=== PATIENT | male | born 1945 | race Caucasian/White ===

== ENCOUNTER → 2020-06-19 15:00 | Outpatient (CLI) | payer MEDICARE, OTHER, SELFPAY ==
[2020-06-19 18:04] LABS: Hematocrit 44.6 % (40-54); Hemoglobin 15.1 g/dL (13.0-16.5); Mean Corp Hgb Conc 33.9 g/dL (32-36); Mean Corpuscular Hgb 30.1 pg (27.0-32.0); Mean Corpuscular Volume 88.8 fL (80-94); Platelet Count 206 K/mm3 (150-450); RBC Distribution Width CV 12.2 % (11.6-14.6); RBC Distribution Width SD 39.6 fl (35.1-43.9); Red Blood Count 5.02 M/mm3 (4.6-6.2)
== END ==
PROVIDERS: PCP Family Medicine; Referring Provider Internal Medicine Pulmonary Disease; Visit Provider Internal Medicine Pulmonary Disease
DX: J44.9 Chronic obstructive pulmonary disease, unspecified (principal); I10 Essential (primary) hypertension
CPT/HCPCS: 36415; 85027

== ENCOUNTER 2022-12-28 10:22 | Emergency (ER) | payer MEDICARE, OTHER, SELFPAY ==
[2022-12-28 10:23] VITALS: BP 154/77; PULSE 45; RESP 14; TEMP 36.4; O2SAT 97; BMI 33.2
--- NOTE | 2022-12-28 10:52 | CT_ITS ---
INDICATION: headache and dizzy EXAMINATION: CTA HEAD - CTA Head and Neck W/ Contrast Injection (and W/O Contrast Images if performed) TECHNIQUE: [place]/head CT angiogram protocol was performed following IV contrast. Routine carotid CT angiogram protocol was performed without and with IV contrast. NASCET criteria using the distal ICAs for comparison were used for evaluation of stenoses. 3D reconstructions were reviewed of the CT angiogram head and neck. A radiation dose optimization technique was used for this scan. IV Contrast dosage and agent: 100 cc [id number] COMPARISON: None. FINDINGS: --Anterior cerebral circulation: ACAs: No significant stenosis at the visualized segments. ACOM: Not identified. MCAs: No significant stenosis at the visualized segments. --Posterior cerebral circulation: PCOMs: Patent left P-comm knot tier: No significant stenosis at the visualized segments. BASILAR ARTERY: No significant stenosis. --Carotid and vertebral circulation: AORTIC ARCH AND BRANCHES: Normal anatomy, patent. RIGHT CCA: No occlusion, significant stenosis or dissection. RIGHT ICA: No occlusion, significant stenosis or dissection. LEFT CCA: No occlusion, significant stenosis or dissection. LEFT ICA: No occlusion, significant stenosis or dissection. RIGHT VERTEBRAL ARTERY: No occlusion, significant stenosis or dissection. LEFT VERTEBRAL ARTERY: No occlusion, significant stenosis or dissection. NECK SOFT TISSUES: Unremarkable. LUNG APICES: Clear. BONES: Unremarkable. IMPRESSION: Normal CTA Head and Neck Electronically Signed: Michoacano Bartlett MD at 12:12 EST , EXAM: CT HEAD WITHOUT INTRAVENOUS CONTRAST CLINICAL INDICATION: headache and dizzy TECHNIQUE: Multiple axial images were obtained of the head without intravenous contrast. This CT exam was performed using one or more of the following dose reduction techniques: automated exposure control, adjustment of the mA and/or kV according to patient size, and/or use of iterative reconstruction technique. This report was created using [employer] report [employer]iration technology. COMPARISON: None. FINDINGS: BRAIN AND EXTRA-AXIAL SPACES: Normal. No intra- or extra-axial hemorrhage. No evidence of acute infarct. No intracranial mass or mass effect. There is preservation of the adan/white matter interface. Posterior fossa structures are unremarkable. Ventricles are appropriate for age. No hydrocephalus. Basal cisterns are patent. BONES/JOINTS: No suspicious lytic or blastic abnormality. SINUSES: No acute sinusitis. MASTOID AIR CELLS: Partial opacification of the right mastoid sinus. ORBITS: Visualized globes, extraocular muscles, optic nerves and retrobulbar fat appear unremarkable. CT/CTA Head AND Neck W/ Contrast IMPRESSION: No acute intracranial abnormality. Partially opacified right mastoid sinus. Electronically Signed: Michoacano Bartlett MD at 12:13 EST ,
--- NOTE | 2022-12-28 10:52 | EKG12_ITS ---
Test Reason : Blood Pressure : / mmHG Vent. Rate : 045 BPM Atrial Rate : 045 BPM P-R Int : 170 ms QRS Dur : 146 ms QT Int : 468 ms P-R-T Axes : -14 068 034 degrees QTc Int : 404 ms Sinus bradycardia Right bundle branch block Abnormal ECG Confirmed by AGUSTIN FERGUSON, BRAD ([id number]), story editor HUGH GASCA ([id number]) on 12/29/2022 2:38:44 PM Referred By: Confirmed By:BRAD VELEZ MD
--- NOTE | 2022-12-28 10:55 | ED.VIS.STROK ---
HPI History of Present Illness Chief Complaint: Weakness Detail of Chief Complaint: Sudden onset headache with dizziness, nausea and visual change. Now resolv Informant: patient, spouse/S.O. and family Onset/Context/Timing Onset: Today Context: Sudden Onset Timing: Continuous Quality and Location: Negative for Right Facial Droop, Left Facial Droop, Right Face Paresthesia, Left Face Parasthesia, Right Arm Parasthesia, Left Arm Parasthesia, Right Leg Parasthesia, Left Leg Parasthesia, Right Arm Weakness, Left Arm Weakness, Right Leg Weakness, Left Leg Weakness, Slurred Speech, Expressive Aphasia, Receptive Aphasia or Difficulty with Ambulation Current Severity: Gone Maximum Severity: Moderate Associated Symptoms Associated Symptoms: Positive for Headache and Nausea; Negative for Vomiting or Chest Pain Narrative Narrative: 77-year-old male history of hypertension, TIAs x3, PA, CAD with 4 cardiac stents on Plavix and aspirin. Today was at religious. He initially became dizzy room spinning then he developed a significant headache with nausea. Said headache was frontal. This entire event lasted around 10 to 15 minutes. It is significantly improved and almost completely resolved. He describes the dizziness as off-balance. He was seated when it occurred he did not try to speak. He had bilateral blurry vision which is since resolved also. Basically his headache is nearly gone. He denies any falls or head trauma. He has never had a brain aneurysm or any intracranial surgery. Prior similar symptoms: No Recent Illness/Hospitalization: No [facility] Medical History Asthma High cholesterol HTN (hypertension) Allergy/AdvReac Type Severity Reaction Status Date / Time No Known Allergies Allergy Verified 12/28/22 10:23 Surgical History H/O heart artery stent Social History Smoking Status: Never smoker ROS ROS ED ROS Narrative Headache. Nausea. Blurry vision. Review of Systems ROS Unobtainable: Denies due to encephalopathy Constitutional Constitutional ED: Denies chills or fever(s) Eyes Eyes: Reports blurry vision ENT ENT ED: Denies ear pain Cardiovascular Cardiovascular: Denies chest pain Respiratory/Chest Respiratory/Chest: Denies cough or dyspnea Gastrointestinal Gastrointestinal: Denies abdominal pain Genitourinary Genitourinary ED: Denies dysuria or hematuria Musculoskeletal Musculoskeletal: Denies arthralgias Integumentary Denies abscess Neurologic Neurologic: Reports headache(s) Psychiatric Psychiatric: Denies anxiety or depression Endocrine Endocrinology: Denies polydipsia Hematologic/Lymphatic Hematologic/Lymphatic: Denies easy bleeding Allergic/Immunologic Allergic/Immunologic ED: Denies mouth swelling EXAM Physical Exam Narrative Exam Narrative: 77-year-old male vital signs are stable afebrile. Blood pressure 154/77. H EENT exam unremarkable. Atraumatic. Pupils round reactive light. No facial droop. Normal speech. Neck nontender no meningismus. Lungs clear to auscultation bilaterally. Heart regular rhythm rate about 50 no murmur. Chest wall nontender. Abdomen soft nontender. Moving all 4 extremities. 5 out of 5 route delivery clerk strength. Dorsi plantarflexion intact. Can raise either arm or leg without any drift. Neurologically awake and alert. Answering questions and following commands. Normal speech. No facial droop. Extraocular motions are intact. Pupils round reactive light about 2 to 3 mm bilaterally. Acting appropriate. NIH of 0. Const Vital Signs: 12/28/22 10:23 Temperature 97.6 F L Temperature Source Oral Pulse Rate 45 L Respiratory Rate 14 Blood Pressure 154/77 H Blood Pressure Mean 102 Pulse Ox 97 Oxygen Delivery Method Room Air Positive well developed; Negative for cachectic, contractures or unkempt General Appearance ED: well developed and NAD; Negative for unkempt, cachectic or contractures Nutritional Appearance: Negative for cachectic HEENT Reports moist mucous membranes; Denies dry mucous membranes Negative for atraumatic or trauma Nose: Negative for other Mouth ED: No dry mucous membranes Mouth: No dry mucous membranes Eyes PERRL and EOMs intact bilaterally General Eye ED: Negative for pale conjunctiva, scleral icterus or other Neck no lymphadenopathy, supple and no JVD General: Negative for tenderness Thyroid: Negative for other Chest Wall inspection of chest normal and palpation of chest normal Chest: Negative for other Resp normal respiratory effort and clear to auscultation bilaterally Effort and Inspection: Negative for retractions Auscultation: Negative for rales, rhonchi or wheezes Cardio no murmurs Rate: regular rate Rhythm: regular rhythm Heart Sounds: Negative for S1 normal or S2 normal GI normal to inspection, nondistended, normoactive bowel sounds, soft to palpation, non-tender, non-distended and no masses Inspection: Negative for abdominal distention Auscultation: normoactive bowel sounds Palpation: Negative for tender or guarding Back/Spine no CVA tenderness General Back: Negative for CVA tenderness Cervical Spine: Negative for cervical spine tenderness Thoracic Spine / Upper Back: Negative for thoracic spinal tenderness Lumbar Spine / Lower Back: Negative for lumbar spinal tenderness Extremity normal to inspection General Extremety ED: Negative for deformity, edema or tenderness General Extremity: Negative for deformity or edema Neuro oriented x3, CN's II-XII intact bilaterally and no sensory deficits noted Sensorium / Orientation: alert, oriented to person, oriented to place and oriented to time; Negative for orientation impaired, confused, lethargic or stuporous Cranial Nerves: Negative for other Speech: speech normal Sensory Exam: No sensory level loss detected Motor Exam: strength 5/5 throughout Psych mental status grossly normal Appearance: Negative for unkempt Attitude: No agitated Mood & Affect: Negative for depressed, anxious or tearful Attention / Concentration: Negative for other Skin no wounds General Skin Exam: Negative for jaundice Lesions: no lesions Rashes: no rashes Trauma: Negative for abrasion NIHSS NIHSS Initial: 1a Level of Consciousness: 0 1b LOC Questions (Score 2 if aphasic/stupor): 0 1c LOC Commands (Only score 1st attempt): 0 2 Best Gaze (If aphasic, use reflexive mvmts.): 0 3 Visual: 0 4 Facial Palsy: 0 5 Motor Arm Right (UN = amputation/fusion): 0 5 Motor Arm Left: 0 6 Motor Leg Right: 0 6 Motor Leg Left: 0 7 Limb ataxia (Only + if out of proportion): 0 8 Sensory (Aphasia/stupor=0 or 1, coma=2): 0 9 Best Language: 0 10 Dysarthria (mute, coma=2, intubated=UN): 0 11 Extinction and Inattention (only scored if +): 0 Total Score: 0 MDM MDM MDM Narrative Medical decision making narrative: 77-year-old male with sudden onset of headache with dizziness and nausea at religious. Episode lasted maybe 15 minutes. Basically resolved and feeling much better at this time. I did check his blood pressure at the time of the event and it was 140s to 150s systolic. His exam is benign. I will CT his head due to prior TIAs and my concern for sudden onset severe headache to rule out an intracranial bleed or brain aneurysm will obtain a CTA. Screening labs and EKG will also be obtained. He does not need any medications at this time or interventions because he is feeling much improved. Multiple repeat exams patient is doing well. He is completely normal neurologic exam symptoms have resolved. I do not have a specific cause for his headache. Or his dizziness. His labs CT and EKG are unremarkable. He has a chronic bradycardia that is not new. He and family are comfortable with him being discharged home with outpatient follow-up. Lab Data Attestation: I reviewed the patient's lab results. Lab results narrative: CBC normal. White count of 5. H&H 15 and 46. Electrolytes normal gap of 6 normal BUN of 14 creatinine 1.2. Glucose 115. Labs: Laboratory Results - last 24 hr 12/28/22 12/28/22 10:12 10:12 WBC 5.1 RBC 5.20 Hgb 15.5 Hct 46.6 MCV 89.6 MCH 29.8 MCHC 33.3 RDW Std Deviation 41.4 RDW Coeff of [place] 12.7 Plt Count 183 MPV 8.6 Immature Gran % (Auto) 0.200 Neut % (Auto) 66.6 Lymph % (Auto) 22.1 [place] % (Auto) 8.1 Eos % (Auto) 2.4 Baso % (Auto) 0.6 Absolute Neuts (auto) 3.4 Absolute Lymphs (auto) 1.12 Nucleated RBC % 0 Sodium 138 Potassium 4.3 Chloride 104 Carbon Dioxide 28.0 Anion Gap 6 BUN 14 Creatinine 1.23 Estim Creat Clear Calc 52.76 Est GFR (MDRD) Af Amer 74 Est GFR (MDRD) Non-Af 61 BUN/Creatinine Ratio 11.4 Glucose 115 H Calcium 9.1 Radiography Diagnostic Testing: Clinical Impression(s) from Imaging Studies Head/Neck CTA 12/28/22 10:52 IMPRESSION: No acute intracranial abnormality. Partially opacified right mastoid sinus. Electronically Signed: Michoacano Bartlett MD at 12:13 EST , Rhythm Strip Rhythm Strip: Sinus Rhythm Rate: 45 Ectopy: None EKG Initial EKG: Attestation: I personally reviewed and interpreted this EKG as follows: Interpretation: Sinus Rhythm and Sinus Bradycardia Comments: Sinus bradycardia rate of 45. Right bundle branch block. No significant change from prior EKG from 2003. Discharge Plan Triage Chief Complaint: Weakness ED Provider: Carmelo Joshi Dx/Rx/DC Orders Clinical Impression: Headache, Dizziness, History of PA (myocardial infarction), History of TIAs Instructions: ED Dizziness, Uncertain Cause Primary Care Provider: Kevin Cline Referrals: Kevin Cline MD [Primary Care Provider] - 3-5 Days Activity Restrictions/Additional Instructions: Your labs and CAT scans of your brain all look good. Your exam is normal today. Your symptoms have resolved. I do not have a specific cause of what happened. Follow-up with your primary care physician. Return if feeling worse. Disposition Disposition: Home, Self Care
[2022-12-28 11:09] LABS: Absolute Lymphocyte Count 1.12 X10^3/uL (0.83-4.51); Absolute Neutrophil Count 3.4 X10^3/uL (2.0-7.7); Basophil# 0.03 X10^3/uL; Basophil% 0.6 % (0-1); Eosinophil# 0.12 X10^3/uL; Eosinophils% 2.4 % (0-5); Hematocrit 46.6 % (40-54); Hemoglobin 15.5 g/dL (13.0-16.5); Lymphocyte # 1.12 X10^3/ul (0.83-4.51); Lymphocyte % 22.1 % (19-41); Mean Corp Hgb Conc 33.3 g/dL (32-36); Mean Corpuscular Hgb 29.8 pg (27.0-32.0); Mean Corpuscular Volume 89.6 fL (80-94); Mean Platelet Vol. 8.6 fl (6.2-12.0); Monocyte# 0.41 X10^3/uL; Monocyte% 8.1 % (0-10); NRBC Flagged by Analyzer 0 % (0-5); Neutrophil # 3.38 X10^3/uL (2.7-7.7); Neutrophil % 66.6 % (47-70); Platelet Count 183 K/mm3 (150-450); RBC Distribution Width CV 12.7 % (11.6-14.6); RBC Distribution Width SD 41.4 fl (35.1-43.9); White Blood Count 5.1 K/mm3 (4.4-11.0)
[2022-12-28 11:22] LABS: Anion Gap 6 (5-15); BUN 14 mg/dL (7-18); BUN/Creat Ratio 11.4 RATIO (10-20); Calcium,Total 9.1 mg/dL (8.5-10.1); Chloride 104 mmol/L (98-107); Creatinine, Serum 1.23 mg/dL (0.70-1.30); EST Glomerular Filtration Rate 61 mL/min (>60); Est Glom Filt Rate - Afr Amer 74 mL/min (>60); Estimated Creatinine Clearance 52.76 ml/min; Glucose 115 mg/dL (74-106); Potassium 4.3 mmol/L (3.5-5.1); Sodium Level 138 mmol/L (136-145)
[2022-12-28 12:37] VITALS: BP 158/82; PULSE 50
[2022-12-28 12:41] VITALS: BP 158/82; PULSE 49
== END 2022-12-28 12:43 | disposition home or self-care (01) ==
PROVIDERS: Emergency Provider Emergency Medicine; PCP Family Medicine; Visit Provider Emergency Medicine
DX: R51.9 Headache, unspecified (principal); R42 Dizziness and giddiness; I25.10 Atherosclerotic heart disease of native coronary artery without angina pectoris; I25.2 Old myocardial infarction; Z95.5 Presence of coronary angioplasty implant and graft; Z79.01 Long term (current) use of anticoagulants; Z86.73 Personal history of transient ischemic attack (TIA), and cerebral infarction without residual deficits
CPT/HCPCS: 70496; 70498; 80048; 85025; 93005; 99285; Q9967

== ENCOUNTER → 2024-09-07 | Outpatient (CLI) | payer MEDICARE, OTHER, SELFPAY ==
--- NOTE | 2024-09-07 13:47 | NEURO_ITS ---
NCS and/or EMG Patient Report Ordering Doctor: GURDEEP SERRANO DATE OF SERVICE: 09/07/24 Aramis presents for electrodiagnostic testing of the left upper and lower limb. He reports unsteady gait and states his left knee occasionally gives out on him. Electrodiagnostic findings: Left median motor nerve demonstrates normal distal latency, amplitude and conduction velocity. Left ulnar motor nerve demonstrates normal distal latency, amplitude and conduction velocity. Left peroneal motor nerve demonstrates normal distal latency, amplitude and conduction velocity. Left tibial motor nerve demonstrates normal distal latency with reduced amplitude and normal conduction velocity. Prolonged left median F?wave. P rolonged left tibial and left peroneal F?wave. Prolonged H?reflex bilaterally. Needle EMG testing was performed the left upper and left lower limb. All muscles tested showed no evidence of denervation with normal motor unit potentials. Electrodiagnostic impression: This is an abnormal study 1. 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 2. No electrodiagnostic evidence for left carpal tunnel or cubital tunnel syndrome 3. No electrodiagnostic evidence for cervical or lumbar radiculopathy. Multi Select Codes Neurology Neurology Interp Codes: 52888-85 Musc test done w/n test comp (interp) (2) and 89651-18 Nrv cndj test 13/> studies (interp)
== END | disposition home or self-care (01) ==
LOC: PSN 11:59
PROVIDERS: PCP Family Medicine; Referring Provider Psychiatry & Neurology Neurology; Visit Provider Psychiatry & Neurology Neurology
DX: R26.81 Unsteadiness on feet (principal)
CPT/HCPCS: 95886; 95913

== ENCOUNTER → 2025-02-01 | Outpatient (CLI) | payer OTHER, SELFPAY ==
--- NOTE | 2025-02-01 06:50 | RAD_ITS ---
PROCEDURE: CHEST PA AND LATERAL 02/01/2025 REASON FOR EXAM: COPD, ASTHMA TECHNIQUE: Frontal and lateral views of the chest. COMPARISON: None. FINDINGS: Hardware: None. Heart: The heart size is normal. Mediastinum: The mediastinal contour is unremarkable. Lungs: Minimal emphysema. Bibasilar atelectasis/scarring. No focal consolidation, pleural effusion or pneumothorax. Bones: The bones are unremarkable. RAD/Chest PA and Lateral IMPRESSION: NEGATIVE CHEST. Reading Location: [id number]
== END | disposition home or self-care (01) ==
LOC: PSN 06:37
PROVIDERS: PCP Family Medicine; Referring Provider Chiropractor; Visit Provider Chiropractor
DX: J44.9 Chronic obstructive pulmonary disease, unspecified (principal)
CPT/HCPCS: 71046; 94060; 94726; 94729

== ENCOUNTER 2025-03-27 08:04 | Emergency (ER) | payer OTHER, SELFPAY ==
[2025-03-27] VITALS (7 sets, daily range): BP systolic 119–149; BP diastolic 74–93; PULSE 45–56; RESP 12–18; TEMP 36.6–36.8; O2SAT 96–98; BMI 33.4
--- NOTE | 2025-03-27 08:18 | EKG12_ITS ---
Test Reason : CP Blood Pressure : */* mmHG Vent. Rate : 45 BPM Atrial Rate : 45 BPM P-R Int : 180 ms QRS Dur : 148 ms QT Int : 458 ms P-R-T Axes : 30 67 46 degrees QTcB Int : 396 ms Sinus bradycardia Right bundle branch block Abnormal ECG Confirmed by Carlito Hendrickson ([id number]), film or videotape editor HUGH GASCA ([id number]) on 03/28/2025 9:54:30 AM Referred By: Confirmed By: Carlito Hendrickson
--- NOTE | 2025-03-27 08:19 | ED.VIS.CHEST ---
HPI History of Present Illness Chief Complaint: Chest Pain Informant: patient, spouse/S.O. and EMS Narrative Narrative: 79-year-old male presenting to the emergency room via EMS with a chief complaint of chest pain. Patient states that the past few days he has felt more bloating thought maybe his stomach has been bothering him. This morning he was feeling some slight chest discomfort and sat down to take his morning medications. He states he took his antacid medicine and a couple minutes later began to have an elephant sitting on his chest and became diaphoretic. EMS was called. Prehospital EKG did not reveal an obvious STEMI. He received aspirin as well as a nitroglycerin which significantly helped his pain. He states now instead of an elephant it feels more like a dog. No vomiting. No black or bloody stools. He notes that he has seen [facility] cardiology for years but is in need of a new chief wharfinger as his chief wharfinger have been changing in recent visits. He notes a heart catheterization last year in which they went in through my arm to take a look at things then through my leg to remove the plaque and give a medicine to prevent plaque. He states he has had prior heart stents. notes the resting heart rate is typically 45-55. Resting blood pressures typically 120s and 130s over 70s [facility] Medical History Asthma High cholesterol HTN (hypertension) Home Medications ?Medication ?Instructions ?Recorded ?Last Taken ?Type acetaminophen 500 mg capsule 1,000 mg PO DAILY pain 03/27/25 03/26/25 History albuterol sulfate 90 mcg/actuation 2 inh inhalation PRN PRN copd 03/27/25 Unknown History aerosol inhaler (Ventolin HFA) amlodipine 10 mg tablet 10 mg PO DAILY 03/27/25 03/26/25 History aspirin 81 mg tablet 81 mg PO DAILY 03/27/25 03/26/25 History betamethasone valerate 0.1 % 1 applic topical DAILY PRN eczema 03/27/25 Unknown History topical ointment cholecalciferol (vitamin D3) 25 25 mcg PO DAILY supplement 03/27/25 03/26/25 History mcg (1,000 unit) tablet (Vitamin D3) clopidogrel 75 mg tablet 75 mg PO DAILY 03/27/25 03/26/25 History fluticasone propionate 230 2 inh inhalation DAILY 03/27/25 03/27/25 History mcg-salmeterol 21 mcg/actuation HFA inhaler isosorbide mononitrate 30 mg 30 mg PO DAILY #14 tabs 03/27/25 Unknown Rx tablet,extended release 24 hr lisinopril 40 mg tablet 40 mg PO DAILY 03/27/25 03/26/25 History metoprolol succinate 25 mg 25 mg PO DAILY 03/27/25 03/26/25 History tablet,extended release 24 hr montelukast 10 mg tablet 10 mg PO DAILY 03/27/25 03/26/25 History multivitamin (Daily Multi-Vitamin 1 tab PO DAILY 03/27/25 03/26/25 History tablet) nitroglycerin 0.4 mg sublingual 0.4 mg sublingual Q5M PRN chest 03/27/25 Unknown History tablet (Nitrostat) pain omega 4-xyv-nqg-fish oil 1,200 mg 1 cap PO DAILY 03/27/25 03/26/25 History (144 mg-216 mg) capsule (Fish Oil) pantoprazole 40 mg tablet,delayed 40 mg PO DAILY 03/27/25 03/27/25 History release pravastatin 40 mg tablet 40 mg PO DAILY 03/27/25 03/26/25 History tamsulosin 0.4 mg capsule (Flomax) 0.4 mg PO DAILY prostate 03/27/25 03/26/25 History theophylline 300 mg 300 mg PO BID 03/27/25 03/26/25 History tablet,extended release,12 hr triamcinolone acetonide 55 mcg 2 spray intranasal DAILY ALLERGIES 03/27/25 03/26/25 History nasal spray aerosol (24 Hour Nasal Allergy) Allergy/AdvReac Type Severity Reaction Status Date / Time No Known Allergies Allergy Verified 03/27/25 08:05 Surgical History H/O heart artery stent Social History Smoking Status: Never smoker ROS ROS ED Constitutional Constitutional ED: Denies chills, fever(s) or weight loss Eyes Eyes: Denies change in vision or diplopia ENT ENT ED: Denies ear pain, rhinorrhea or sore throat Cardiovascular Cardiovascular: Reports as per HPI and chest pain; Denies orthopnea, palpitations or racing heartbeat Respiratory/Chest Respiratory/Chest: Denies cough, dyspnea or orthopnea Gastrointestinal Gastrointestinal: Denies abdominal pain, diarrhea, nausea or vomiting Genitourinary Genitourinary ED: Denies dysuria, hematuria or urinary frequency Musculoskeletal Musculoskeletal: Denies arthralgias or myalgias Integumentary Denies abscess or rash Neurologic Neurologic: Denies headache(s) or weakness Psychiatric Psychiatric: Denies anxiety, depression, suicidal ideation or suicidal thoughts Endocrine Endocrinology: Denies polydipsia, polyphagia or polyuria Allergic/Immunologic Allergic/Immunologic ED: Denies mouth swelling, tongue swelling or urticaria EXAM Physical Exam Const Vital Signs: 03/27/25 08:05 03/27/25 08:08 03/27/25 08:55 Temperature 98.3 F Temperature Source Oral Pulse Rate 45 L Respiratory Rate 12 Respiratory Effort Normal Non-Labored Respiratory Pattern Normal Blood Pressure 119/74 133/83 H Blood Pressure Mean 89 Pulse Ox 96 Oxygen Delivery Method Room Air 03/27/25 09:04 03/27/25 10:00 03/27/25 11:00 Temperature Temperature Source Pulse Rate 56 L 55 L 55 L Respiratory Rate 18 18 18 Respiratory Effort Respiratory Pattern Blood Pressure 128/84 H 124/80 H 126/78 H Blood Pressure Mean 98 94 94 Pulse Ox 98 98 98 Oxygen Delivery Method 03/27/25 12:00 03/27/25 13:02 03/27/25 13:02 Temperature 98 F Temperature Source Pulse Rate 53 L 53 L 53 L Respiratory Rate 14 18 18 Respiratory Effort Respiratory Pattern Blood Pressure 149/93 H 129/82 H 129/82 H Blood Pressure Mean 111 97 97 Pulse Ox 98 96 97 Oxygen Delivery Method Nasal Cannula MDM MDM MDM Narrative Medical decision making narrative: Differential diagnosis includes but not limited to cardiac dysrhythmia acute coronary syndrome coronary artery disease esophageal spasm GERD pneumothorax congestive heart failure pleural effusions aortic dissection and aneurysm Prehospital EKG with was sent to us and was reviewed. EKG here in the department shows sinus bradycardia with right bundle branch block. 2 sets of cardiac enzymes are 19 and 16. White count 5.7 hemoglobin 14.6 platelet count of 222. BMP shows a creatinine 1.42 with a glucose of 128. My independent interpretation of the chest x-ray is no acute process. Patient has been resting comfortably. I spoke with Dr. Hendrickson from cardiology. Using shared decision making we offered the patient admission versus the addition of Imdur and follow-up in the office. Patient is comfortable going home and taking the Imdur. He will return if worsening or concerns. History & Record Review Discussion w/independent historian: EMS personnel, Patient and Significant other Lab Data Attestation: I reviewed the patient's lab results. Labs: Laboratory Results - last 24 hr 03/27/25 03/27/25 08:20 10:58 WBC 5.7 RBC 4.84 Hgb 14.6 Hct 42.1 MCV 87.0 MCH 30.2 MCHC 34.7 RDW Std Deviation 38.7 RDW Coeff of [place] 12.1 Plt Count 222 MPV 8.9 Immature Gran % (Auto) 0.400 Neut % (Auto) 71.6 H Lymph % (Auto) 18.0 L [place] % (Auto) 7.4 Eos % (Auto) 1.9 Baso % (Auto) 0.7 Absolute Neuts (auto) 4.1 Absolute Lymphs (auto) 1.02 Nucleated RBC % 0 Sodium 137 Potassium 4.1 Chloride 102 Carbon Dioxide 24.0 Anion Gap 11 BUN 19 Creatinine 1.42 H Estim Creat Clear Calc 52.21 Est GFR (MDRD) Non-Af 51 L BUN/Creatinine Ratio 13.0 Glucose 128 H Calcium 9.4 Troponin T High Sens 19 Troponin T Hi Sens 2 Hr 16 Radiography Diagnostic Testing: Clinical Impression(s) from Imaging Studies Chest X-Ray 03/27/25 08:35 IMPRESSION: No acute cardiopulmonary process is identified radiographically. If the patient's symptoms continue or worsen, follow-up imaging is recommended. Reading Location: [facility] EKG Initial EKG: Attestation: I personally reviewed and interpreted this EKG as follows: Comments: Sinus bradycardia with right bundle branch block ventricular rate of 45 bpm. This appears grossly unchanged from EKG dated December 28, 2022 Prior EKG tracings: available for review Prior: Unchanged Management Discussion w/another healthcare provider: [employer] [address] [employer] (Dr. Hendrickson (cardiology)) Discharge Plan Triage Chief Complaint: Chest Pain ED Provider: Dre Godwin Dx/Rx/DC Orders Clinical Impression: Chest pain Instructions: ED Chest Pain, Uncertain Cause Prescriptions: New isosorbide mononitrate 30 mg tablet extended release 24 hr 30 mg PO DAILY Qty: 14 0RF No Action pravastatin 40 mg tablet 40 mg PO DAILY theophylline 300 mg tablet extended release 12 hr 300 mg PO BID amlodipine 10 mg tablet 10 mg PO DAILY montelukast 10 mg tablet 10 mg PO DAILY metoprolol succinate 25 mg tablet extended release 24 hr 25 mg PO DAILY fluticasone propion-salmeterol 230-21 mcg/actuation HFA aerosol inhaler 2 inh inhalation DAILY clopidogrel 75 mg tablet 75 mg PO DAILY pantoprazole 40 mg tablet,delayed release (DR/EC) 40 mg PO DAILY lisinopril 40 mg tablet 40 mg PO DAILY aspirin 81 mg tablet 81 mg PO DAILY acetaminophen 500 mg capsule 1,000 mg PO DAILY cholecalciferol (vitamin D3) [Vitamin D3] 25 mcg (1,000 unit) tablet 25 mcg PO DAILY tamsulosin [Flomax] 0.4 mg capsule 0.4 mg PO DAILY albuterol sulfate [Ventolin HFA] 90 mcg/actuation HFA aerosol inhaler 2 inh inhalation PRN PRN (Reason: copd) nitroglycerin [Nitrostat] 0.4 mg tablet, sublingual 0.4 mg sublingual Q5M PRN (Reason: chest pain) Rx Instructions: do not exceed 3 doses per episode betamethasone valerate 0.1 % ointment 1 applic topical DAILY PRN (Reason: eczema) omega 6-keu-iun-fish oil [Fish Oil] 1,200 (144-216) mg capsule 1 cap PO DAILY triamcinolone acetonide [24 Hour Nasal Allergy] 55 mcg aerosol,spray 2 spray intranasal DAILY Rx Instructions: administer into each nostril multivitamin [Daily Multi-Vitamin] Tablet 1 tab PO DAILY Primary Care Provider: Kevin Cline Referrals: Kevin Cline MD [Primary Care Provider] - Carlito Hendrickson MD [Med Staff - Active Staff] - As soon as possible Print Language: Greek Disposition Disposition: Home, Self Care Discharge Date/Time: 03/27/25 13:15
--- NOTE | 2025-03-27 08:35 | RAD_ITS ---
PROCEDURE: CHEST 1 VIEW (PORTABLE) 03/27/2025 REASON FOR EXAM: CHEST PAIN TECHNIQUE: Frontal view of the chest. COMPARISON: No prior films are available for comparison however a prior chest x-ray report dated 02/01/2025 is available. FINDINGS: Hardware: None Heart: Heart size and configuration are within normal limits. Pulmonary vasculature is unremarkable. Trachea is midline. Lungs: Expanded and clear without evidence of atelectasis, consolidation, effusion or pneumonic infiltrate. Bones: Mild arthritic change of the acromioclavicular joints are noted bilaterally. RAD/Chest 1 View (Portable) IMPRESSION: No acute cardiopulmonary process is identified radiographically. If the patien t's symptoms continue or worsen, follow-up imaging is recommended. Reading Location: [id number]
[2025-03-27 08:47] LABS: Absolute Lymphocyte Count 1.02 X10^3/uL (0.83-4.51); Absolute Neutrophil Count 4.1 X10^3/uL (2.0-7.7); Basophil# 0.04 X10^3/uL; Basophil% 0.7 % (0-1); Eosinophil# 0.11 X10^3/uL; Eosinophils% 1.9 % (0-5); Hematocrit 42.1 % (40-54); Hemoglobin 14.6 g/dL (13.0-16.5); Lymphocyte # 1.02 X10^3/ul (0.83-4.51); Mean Corp Hgb Conc 34.7 g/dL (32-36); Mean Corpuscular Hgb 30.2 pg (27.0-32.0); Mean Platelet Vol. 8.9 fl (6.2-12.0); Monocyte# 0.42 X10^3/uL; Monocyte% 7.4 % (0-10); NRBC Flagged by Analyzer 0 % (0-5); Neutrophil # 4.05 X10^3/uL (2.7-7.7); Neutrophil % 71.6 % (47-70); Platelet Count 222 K/mm3 (150-450); RBC Distribution Width CV 12.1 % (11.6-14.6); RBC Distribution Width SD 38.7 fl (35.1-43.9); Red Blood Count 4.84 M/mm3 (4.6-6.2); White Blood Count 5.7 K/mm3 (4.4-11.0)
[2025-03-27] MEDS: Nitroglycerin SL (ED/IMG/CATH) 0.4 MG TABLET SL (08:55)
[2025-03-27 09:25] LABS: Anion Gap 11 (5-15); BUN 19 mg/dL (4-19); Calcium,Total 9.4 mg/dL (7.6-11.0); Chloride 102 mmol/L (98-108); Creatinine, Serum 1.42 mg/dL (0.70-1.20); EST Glomerular Filtration Rate 51 (>60); Estimated Creatinine Clearance 52.21 ml/min (50-250); Glucose 128 mg/dL (70-99); Potassium 4.1 mmol/L (3.3-5.1); Sodium Level 137 mmol/L (133-145); Troponin T High Sensitivity 19 ng/L (<=22)
[2025-03-27 11:59] LABS: Troponin T High Sens 2 HR 16 ng/L (<=22)
== END 2025-03-27 13:15 | disposition home or self-care (01) ==
PROVIDERS: Emergency Provider Emergency Medicine; PCP Family Medicine; Visit Provider Emergency Medicine
DX: R07.9 Chest pain, unspecified (principal); I10 Essential (primary) hypertension; E78.00 Pure hypercholesterolemia, unspecified; Z95.5 Presence of coronary angioplasty implant and graft; Z79.02 Long term (current) use of antithrombotics/antiplatelets; Z79.82 Long term (current) use of aspirin; Z79.899 Other long term (current) drug therapy
CPT/HCPCS: 71045; 80048; 84484; 85025; 93005; 99285; A4216

== ENCOUNTER → 2025-08-07 | Outpatient (CLI) | payer OTHER, SELFPAY ==
--- NOTE | 2025-08-07 08:46 | VDLE_ITS ---
Reason For Study Reason For Study: Bilateral leg swelling RIGHT LEFT GSV is normal. GSV is normal. CFV is compressible, spontaneous, phasic, competent CFV is compressible, spontaneous, phasic, competent, and demonstrates normal augmentation. and demonstrates normal augmentation. FV is compressible, spontaneous, phasic, competent FV is compressible, spontaneous, phasic, competent and demonstrates normal augmentation. and demonstrates normal augmentation. POP V is compressible, spontaneous, phasic, competent POP V is compressible, spontaneous, phasic, competent and demonstrates normal augmentation. and demonstrates normal augmentation. T/P Trunk is compressible. T/P Trunk is compressible. PTV is compressible. PTV is compressible. RT PerV is compressible. LT PerV is compressible. Procedure This is a venous duplex using B-mode, color flow and spectral Doppler. Exam performed in department. A preliminary report was called and/or faxed to Dr. Pedersen. VL/Venous Duplex US - Naeem Extrem Interpretation Summary Deep veins of the lower extremities are bilaterally patent and compressible seg mentally. There is no evidence of deep vein thrombosis on either side. Valvular competence appears intact within the p roximal deep venous systems bilaterally. The great saphenous veins appear bilaterally patent and compressible segmentall y. Ordering Physician: Margaret Pedersen Referring Physician: Kevin Cline Performed By: Maira Joe RVT
== END | disposition home or self-care (01) ==
LOC: US 08:39
PROVIDERS: PCP Family Medicine; Referring Provider Internal Medicine; Visit Provider Internal Medicine
DX: R60.0 Localized edema (principal)
CPT/HCPCS: 93970

== ENCOUNTER → 2025-08-09 | Outpatient (CLI) | payer OTHER, SELFPAY ==
--- NOTE | 2025-08-09 06:38 | US_ITS ---
PROCEDURE: ABDOMEN COMPLETE 08/09/2025 REASON FOR EXAM: ABD PAIN GENERALIZED TECHNIQUE: Procedure Code: USABDC Modality: US Procedure: ABDOMEN COMPLETE COMPARISON: None FINDINGS: Liver: Diffusely echogenic suggesting fatty infiltration. Hepatomegaly. The liver measures 19.4 cm. Gallbladder: No stones, sludge, wall thickening or tenderness. Common bile duct: Normal measuring 3.6 mm . Pancreas: Normal Kidneys: The right kidney measures 11.3 cm 6.2 cm x 5 cm. The left kidney measures 10.6 cm x 5.7 cm 5.5 cm. No renal cysts are seen. Spleen: Normal in size and echotexture measuring no focal lesion is seen.. Aorta: Visualized abdominal aorta is of normal size. IVC: Visualized inferior vena cava is unremarkable. Peritoneal Findings: No ascites identified. US/Abdomen Complete IMPRESSION: Hepatomegaly and fatty infiltration of the liver. Reading Location: [place] [id number]
== END | disposition home or self-care (01) ==
LOC: US 06:37
PROVIDERS: PCP Family Medicine; Referring Provider Internal Medicine; Visit Provider Internal Medicine
DX: R10.84 Generalized abdominal pain (principal)
CPT/HCPCS: 76700